=== PATIENT | female | born 1970 | race African-American/Black ===

== ENCOUNTER 2025-05-02 12:56 | Emergency (ER) | payer OTHER, MEDICARE, MEDICAID ==
[~2025-05-02] VITALS: Ht 165.1 cm; Wt 66.0 kg
[2025-05-02 12:57] VITALS: O2SAT 99
[2025-05-02] MEDS: ACETAMINOPHEN 325MG TABLET PO ONE (14:01)
[2025-05-02 15:50] VITALS: BP 138/83; PULSE 72; RESP 14; TEMP 36.7; O2SAT 100
== END 2025-05-02 15:58 | disposition home or self-care (01) ==
LOC: ER 12:56
DX: M25.552 Pain in left hip (principal); I10 Essential (primary) hypertension; R42 Dizziness and giddiness; Z86.73 Personal history of transient ischemic attack (TIA), and cerebral infarction without residual deficits; V89.2XXA Person injured in unspecified motor-vehicle accident, traffic, initial encounter; Y92.410 Unspecified street and highway as the place of occurrence of the external cause; Y93.89 Activity, other specified; Y99.8 Other external cause status
CPT/HCPCS: 73502; 73562; 99284